=== PATIENT | male | born 1985 | race Caucasian/White ===

== ENCOUNTER 2016-11-22 20:01 | Emergency (ER) | payer BC, OTHER ==
[~2016-11-22] VITALS: Ht 188 cm; Wt 113.4 kg
[2016-11-22 22:47] VITALS: BP 146/94
--- NOTE | 2016-11-22 23:52 | PHYS DOC ---
Past Medical History Past Medical History: No Pertinent History Past Surgical History: No Surgical History Alcohol Use: None Drug Use: None Adult General Chief Complaint Chief Complaint: UPPER EXTREMITY PAIN HPI HPI Patient is a 31 year old male who presents with complaint of chest wall pain. Patient states that he injured himself 5 days ago while working on a job. 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 Patient states that he felt a pop in the front of his chest while holding pressure on the equipment. Patient states initially he had localized pain to his chest. Patient states however that he has developed worsening pain that radiates around towards his back. Patient did not fall and denied any trauma to the area. Patient states he has not been taking any medications to help with symptoms. Due to worsening symptoms including pain with breathing, the patient came to the emergency department for evaluation to ensure that he did not "injure my lung." Patient states that the pain worsens when he moves his right upper extremity, especially across his body. Patient rates pain as 8 out of 10. Review of Systems Review of Systems Constitutional: Denies fever or chills [] Eyes: Denies change in visual acuity, redness, or eye pain [] HENT: Denies nasal congestion or sore throat [] Respiratory: Denies cough or shortness of breath [] Cardiovascular: Chest wall pain [] GI: Denies abdominal pain, nausea, vomiting, bloody stools or diarrhea [] : Denies dysuria or hematuria [] Musculoskeletal: Right rib and back pain [] Integument: Denies rash or skin lesions [] Neurologic: Denies headache, focal weakness or sensory changes [] Physical Exam Physical Exam Constitutional: Alert, afebrile, appears in mild discomfort. [] HENT: Normocephalic, atraumatic, bilateral external ears normal, oropharynx moist, no oral exudates, nose normal. [] Eyes: PERRLA, EOMI, conjunctiva normal, no discharge. [] Neck: Normal range of motion, no tenderness, supple, no stridor. [] Cardiovascular:Heart rate regular rhythm, no murmur [] Lungs & Thorax: Bilateral breath sounds clear to auscultation, anterolateral lateral chest wall tenderness to palpation causing reproducible pain [] Abdomen: Bowel sounds normal, soft, no tenderness, no masses, no pulsatile masses. [] Skin: Warm, dry, no erythema, no rash. [] Back: No tenderness, no CVA tenderness. [] Extremities: No tenderness, no cyanosis, no clubbing, ROM intact, no edema. [] Neurologic: Alert and oriented X 3, normal motor function, normal sensory function, no focal deficits noted. [] Current Patient Data Vital Signs Vital Signs Date Time Temp Pulse Resp B/P Pulse Ox O2 Delivery O2 Flow Rate FiO2 11/22/16 22:47 98.4 81 20 99 Room Air 98.4 EKG EKG Not performed [] Radiology/Procedures Radiology/Procedures [facility] [address] [place] [address] IMAGING REPORT Signed PATIENT: ROSS CAIN ACCOUNT: [id number] : 1985 LOCATION: ER AGE: 31 SEX: M EXAM STATUS: REG ER ORD. PHYSICIAN: DELFINA TAVERAS MD REASON: chest pain PROCEDURE: CHEST PA & LATERAL Chest PA and lateral Indication: Chest pain. Time of exam 1:00 a.m. No prior studies are available for comparison. The heart size is normal. There is minimal linear atelectasis or scarring in the left base. Otherwise the lungs are clear. No effusion is seen. No pneumothorax is detected. Impression: Minimal left basilar subsegmental atelectasis or scarring. No other abnormality is seen. Electronically signed by: Jm Lama MD (Nov 23, 2016 01:58:45) DICTATED and SIGNED BY: JM LAMA MD DATE: 11/23/16 0158 CC: DELFINA TAVERAS MD; TIESHA MUÑOZ ~ [] Course & Med Decision Making Course & Med Decision Making Pertinent Labs and Imaging studies reviewed. (See chart for details) Patient's chest x-ray did not show any evidence of acute cardiopulmonary abnormality. Patient's symptoms appear consistent with acute intercostal muscle strain. Patient's Worker's Comp. paperwork was filled out in the emergency department. Patient will be treated with Flexeril and ibuprofen and advised follow-up in one week with primary doctor and return to emergency department for any worsening symptoms. Patient was understanding and in agreement with treatment plan. Dragon Disclaimer Dragon Disclaimer This electronic medical record was generated, in whole or in part, using a voice recognition dictation system. Departure Departure Impression: Primary Impression: Intercostal muscle strain Disposition: HOME, SELF-CARE Condition: STABLE Referrals: TIESHA MUÑOZ (PCP) Patient Instructions: Chest Wall Pain Additional Instructions: Follow-up with primary doctor in 1 week. Return to emergency department for any worsening symptoms. Problem Qualifiers Primary Impression: Intercostal muscle strain Encounter type: initial encounter Qualified Code: S29.011A - Strain of muscle and tendon of front wall of thorax, initial encounter DELFINA TAVERAS MD Nov 22, 2016 23:52
--- NOTE | 2016-11-23 01:59 | RAD ---
Chest PA and lateral Indication: Chest pain. Time of exam 1:00 a.m. No prior studies are available for comparison. The heart size is normal. There is minimal linear atelectasis or scarring in the left base. Otherwise the lungs are clear. No effusion is seen. No pneumothorax is detected. Impression: Minimal left basilar subsegmental atelectasis or scarring. No other abnormality is seen. Electronically signed by: Jm Lama MD (Nov 23, 2016 01:58:45)
[2016-11-23] MEDS ORDERED: IBUP-1007 PO (02:25)
[2016-11-23] MEDS ORDERED: CYCL10TA2 PO (02:25)
== END 2016-11-23 02:30 | disposition home or self-care (01) ==
LOC: ER 20:01 → EDSEX 20:01 → ER 11-23 02:30
DX: S29.011A Strain of muscle and tendon of front wall of thorax, initial encounter (principal); X58.XXXA Exposure to other specified factors, initial encounter; Y93.89 Activity, other specified; Y92.89 Other specified places as the place of occurrence of the external cause; Y99.8 Other external cause status
CPT/HCPCS: 71020; 99284-25